=== PATIENT | female | born 1960 | race Caucasian/White ===

== ENCOUNTER 2016-10-02 22:13 | Emergency (ER) | payer SELFPAY | END 2016-10-03 00:45 | disposition left against medical advice (07) | LOC: D.ER 22:13 | DX: S99.921A Unspecified injury of right foot, initial encounter (principal); W18.2XXA Fall in (into) shower or empty bathtub, initial encounter; Y93.E1 Activity, personal bathing and showering; Y92.012 Bathroom of single-family (private) house as the place of occurrence of the external cause ==